=== PATIENT | female | born 1945 | race Two or more races ===

== ENCOUNTER 2024-05-23 18:38 | Emergency (ER) | payer OTHER ==
[~2024-05-23] VITALS: Ht 162.6 cm; Wt 65.0 kg
[2024-05-23 18:57] VITALS: BP 152/66; PULSE 71; RESP 20; O2SAT 98
== END 2024-05-23 23:30 | disposition left against medical advice (07) ==
LOC: ER 18:38 → EDBD 18:38 → ER 23:30
DX: F41.9 Anxiety disorder, unspecified (principal); Z53.21 Procedure and treatment not carried out due to patient leaving prior to being seen by health care provider

== ENCOUNTER → 2024-05-27 | Outpatient (CLI) | payer OTHER ==
[2024-05-27 11:35] LABS: Basophils # (auto) 0.1 10 ^3/uL (0-0.2); Basophils % (auto) 0.8 % (0.0-2.0); Eosinophils # (auto) 0 10 ^3/uL (0-0.8); Eosinophils % (auto) 0.5 % (0.0-7.0); Hematocrit 34.5 % (36.0-46.0); Hemoglobin 11.9 g/dL (12.2-16.2); Lymphocytes # (auto) 1.3 10 ^3/uL (0.4-5.4); Lymphocytes % (auto) 20.8 % (10.0-50.0); Mean Corpuscular Hemoglobin 29.1 pg (28.0-32.0); Mean Corpuscular Hgb Conc. 34.4 g/dL (32.0-36.0); Mean Corpuscular Volume 84.6 fL (80.0-100.0); Monocytes # (auto) 0.4 10 ^3/uL (0-1.3); Monocytes % (auto) 5.8 % (0.0-12.0); Neutrophils # (auto) 4.6 10 ^3/uL (1.6-8.6); Neutrophils % (auto) 72.1 % (37.0-80.0); Platelet Count (auto) 238 10^3/uL (140-450); Red Blood Cells 4.08 10^6/uL (4.0-5.20); Red Cell Distribution Width 16.5 % (11.8-14.3); White Blood Cell 6.3 10^3/uL (4.4-10.8)
[2024-05-27 11:51] LABS: % Iron Saturation 19.9 % (15-50); Alanine Aminotransferase 13 U/L (7-40); Albumin 4.6 g/dL (3.2-4.8); Alkaline Phosphatase 96 U/L (46-116); Anion Gap 8 (5-15); Aspartate Aminotransferase 15 U/L (13-40); BUN/Creatinine Ratio 16.1 (10.0-20.0); Bilirubin, Total 0.8 mg/dL (0.2-1.0); Blood Urea Nitrogen 18 mg/dL (9-23); Calcium 9.6 mg/dL (8.7-10.4); Carbon Dioxide 29 mmol/L (20-31); Chloride 97 mmol/L (98-107); Glucose 180 mg/dL (74-106); Potassium 3.4 mmol/L (3.5-5.1); Sodium 134 mmol/L (136-145); Total Protein 6.9 g/dL (5.7-8.2)
[2024-05-27 12:30] LABS: Ferritin 7.4 ng/mL (10-291); Folate (Folic Acid) 33.01 ng/mL (>5.38)
[2024-05-28 08:06] LABS: Immunoglobulin A 133 mg/dL (64-422); Immunoglobulin G, Serum 828 mg/dL (586-1602); Immunoglobulin M 49 mg/dL (26-217)
[2024-05-28 10:07] LABS: Albumin 3.8 g/dL (2.9-4.4); Alpha-1-Globulin 0.2 g/dL (0.0-0.4); Alpha-2-Globulin 0.7 g/dL (0.4-1.0); Gamma Globulin 0.8 g/dL (0.4-1.8); Globulin Total 2.6 g/dL (2.2-3.9); Kappa Lite Chain Free Serum 29.4 mg/L (3.3-19.4); Protein Total Serum 6.4 g/dL (6.0-8.5)
[2024-05-30 11:07] LABS: Antiparietal Cell Antibody 134.4 Units (0.0-20.0)
== END | disposition home or self-care (01) ==
LOC: LAB 09:44
PROVIDERS: ATTEND Student in an Organized Health Care Education/Training Program
DX: E53.9 Vitamin B deficiency, unspecified (principal)
CPT/HCPCS: 36415; 80053; 82607; 82728; 82746; 82784; 83521; 83540; 83550; 84155; 84165; 85025; 86334

== ENCOUNTER → 2024-09-30 | Outpatient (CLI) | payer OTHER ==
[2024-09-30 11:31] LABS: % Iron Saturation 8.1 % (15-50)
[2024-09-30 11:36] LABS: Ferritin 5.4 ng/mL (10-291); Folate (Folic Acid) 12.72 ng/mL (>5.38)
== END | disposition home or self-care (01) ==
LOC: LAB 09:31
PROVIDERS: ATTEND Student in an Organized Health Care Education/Training Program
DX: D51.9 Vitamin B12 deficiency anemia, unspecified (principal)
CPT/HCPCS: 82607; 82728; 82746; 83540; 83550

== ENCOUNTER → 2024-12-05 | Outpatient (CLI) | payer OTHER ==
[2024-12-05 09:57] LABS: Urine Bacteria None Seen /hpf (None Seen)
[2024-12-05 10:29] LABS: Urine Blood Negative /uL (Negative); Urine Clarity Clear (Clear); Urine Color Light-Yellow (Yellow); Urine Protein, UAD Negative (Negative); Urine Specific Gravity 1.012 (1.001-1.035); Urine Squamous Epithelial Cell FEW /hpf (<5); Urine Urobilinogen Normal (Negative); Urine WBC 7 /HPF (0-5); Urine pH 6.5 (5.0-9.0)
[2024-12-05 10:35] LABS: Creatinine, Urine 84.65 mg/dL (30.0-125.0)
[2024-12-05 10:37] LABS: Alanine Aminotransferase 16 U/L (7-40); Alanine Aminotransferase 17 U/L (7-40); Alkaline Phosphatase 96 U/L (46-116); Anion Gap 7 (5-15); BUN/Creatinine Ratio 13.1 (10.0-20.0); BUN/Creatinine Ratio 14.3 (10.0-20.0); Blood Urea Nitrogen 13 mg/dL (9-23); Blood Urea Nitrogen 14 mg/dL (9-23); Calcium 9.3 mg/dL (8.7-10.4); Carbon Dioxide 29 mmol/L (20-31); Total Protein 6.6 g/dL (5.7-8.2)
[2024-12-05 10:38] LABS: LDL Cholesterol 81 mg/dL (< 100); Total Protein 6.5 g/dL (5.7-8.2)
[2024-12-05 10:39] LABS: Albumin 4.4 g/dL (3.2-4.8); Aspartate Aminotransferase 18 U/L (13-40); Aspartate Aminotransferase 21 U/L (13-40); Basophils # (auto) 0.1 10 ^3/uL (0-0.2); Basophils % (auto) 0.9 % (0.0-2.0); Bilirubin, Total 0.6 mg/dL (0.2-1.0); Chloride 97 mmol/L (98-107); Cholesterol 150 mg/dL (< 200); Eosinophils # (auto) 0 10 ^3/uL (0-0.8); Eosinophils % (auto) 0.8 % (0.0-7.0); Glucose 215 mg/dL (74-106); Glucose 216 mg/dL (74-106); HDL Cholesterol 49 mg/dL (40-59); Hematocrit 38.1 % (36.0-46.0); Hemoglobin 12.7 g/dL (12.2-16.2); Lymphocytes % (auto) 14.7 % (10.0-50.0); Mean Corpuscular Hemoglobin 28.4 pg (28.0-32.0); Mean Corpuscular Hgb Conc. 33.5 g/dL (32.0-36.0); Mean Corpuscular Volume 84.9 fL (80.0-100.0); Monocytes # (auto) 0.4 10 ^3/uL (0-1.3); Monocytes % (auto) 6.6 % (0.0-12.0); Platelet Count (auto) 226 10^3/uL (140-450); Potassium 3.3 mmol/L (3.5-5.1); Potassium 3.4 mmol/L (3.5-5.1); Red Blood Cells 4.49 10^6/uL (4.0-5.20); Sodium 133 mmol/L (136-145); Triglycerides 169 mg/dL (< 150); White Blood Cell 6.5 10^3/uL (4.4-10.8)
[2024-12-05 10:40] LABS: Bilirubin, Total 0.6 mg/dL (0.2-1.0)
[2024-12-05 10:41] LABS: Basophils # (auto) 0 10 ^3/uL (0-0.2); Basophils % (auto) 0.7 % (0.0-2.0); Eosinophils # (auto) 0 10 ^3/uL (0-0.8); Eosinophils % (auto) 0.6 % (0.0-7.0); Hematocrit 37.7 % (36.0-46.0); Hemoglobin 12.5 g/dL (12.2-16.2); Lymphocytes # (auto) 0.9 10 ^3/uL (0.4-5.4); Lymphocytes % (auto) 14.3 % (10.0-50.0); Mean Corpuscular Hemoglobin 28.2 pg (28.0-32.0); Mean Corpuscular Hgb Conc. 33.3 g/dL (32.0-36.0); Mean Corpuscular Volume 84.6 fL (80.0-100.0); Monocytes # (auto) 0.4 10 ^3/uL (0-1.3); Monocytes % (auto) 6.6 % (0.0-12.0); Neutrophils # (auto) 5.1 10 ^3/uL (1.6-8.6); Neutrophils % (auto) 77.8 % (37.0-80.0); Nucleated Red Blood Cells % 0.1 %; Platelet Count (auto) 222 10^3/uL (140-450); Red Blood Cells 4.45 10^6/uL (4.0-5.20); Red Cell Distribution Width 17.8 % (11.8-14.3); White Blood Cell 6.5 10^3/uL (4.4-10.8)
[2024-12-05 11:29] LABS: Carcinoembryonic Antigen 3.96 ng/mL (<=5.0)
[2024-12-09 13:38] LABS: Immunoglobulin A 132 mg/dL
[2024-12-09 13:39] LABS: Endomysial IgA Antibody Negative
[2024-12-09 13:41] LABS: t-Transglutaminase (tTG) IgA <2 U/mL
== END | disposition home or self-care (01) ==
LOC: LAB 09:32
PROVIDERS: ATTEND Student in an Organized Health Care Education/Training Program
DX: I10 Essential (primary) hypertension (principal); E11.9 Type 2 diabetes mellitus without complications; D50.9 Iron deficiency anemia, unspecified
CPT/HCPCS: 36415; 80053; 80061; 81001; 82043; 82378; 82570; 82607; 82784; 83036; 83516; 84443; 85025; 86255

== ENCOUNTER 2025-01-22 16:54 | Inpatient (IN) | payer OTHER ==
[~2025-01-22] VITALS: Ht 167.6 cm; Wt 62.5 kg
--- NOTE | 2025-01-22 17:46 | ED.PDOC ---
History of Present Illness HPI Comments HPI: Vitals Temperature: Respiratory rate: SpO2: Heart rate: Blood pressure: Past Medical History: Past Surgical History: Social History: HPI: Poor Historian. 79-year-old female brought in by her daughter for evaluation of two falls one last week and another one today. Patient was getting up and felt very lightheaded and fell forward on her face. Patient transiently blacked out and returned spontaneously to her baseline. Similar episode happened also a week ago while she was standing she suddenly got dizzy fell to the ground. Patient denies any headache at this time or neck pain. Denies any acute numbness or tingling sensation. REVIEW OF SYSTEMS: CONSTITUTIONAL: Denies acute: fever, diaphoresis, chills, HEAD: Denies acute: headache, photophobia Eyes: Denies acute: Double vision, vision loss, eye pain, eye discharge. EARS: Denies acute: tinnitus, hearing loss, ear discharge, ear pain, THROAT: Denies acute: sore throat, swelling, difficulty swallowing , pain with swallowing, change in voice. NECK: Denies acute: neck pain, neck swelling, stiff neck. HEART: Denies acute : chest pain, palpitations, LUNGS: Denies acute: SOB, wheezing, cough, hemoptysis ABDOMEN: Denies acute: abdominal pain, Nausea, Vomiting, diarrhea, melena , hematemesis, hematochezia SKIN: Denies acute: rash, redness, lesions, itchiness. EXTREMITIES: Denies acute: calf pain, numbness, tingling, weakness, denies pain in extremity. Denies acute: Low back pain. Neuro: Denies acute: focal neurological deficit, motor or sensory focal neurological deficit, tremors, seizure like activity, confusion, change in mental status, loss of bowel or bladder function, cauda equina like symptoms. : Denies acute: dysuria, hematuria, flank pain, increase in urinary frequency. PSYCH: Denies acute: hallucination, suicidal ideation, homicidal ideation. FEMALE: Denies acute: abnormal vaginal bleeding, foul odor, unusual discharge. PHYSICAL EXAM: General: ----no----acute distress, awake and alert. Head: normocephalic, atraumatic. Noted left face contusion from the fall. Neck: supple, trachea is midline, no swelling. Cervical spine: Palpation of the posterior midline of the cervical spine reveals no focal swelling, erythema, focal tenderness to palpation. Patient has normal range of motion. Throat: Normal phonation. Eyes:, no erythema, no purulent discharge, no proptosis, no icterus. Heart: regular rate, regular rhythm, no significant murmur appreciated. Lungs: no apparent respiratory distress, Able to speak in full sentences. No wheezing, no rhonchi, no crackles. No stridors Clear to auscultation bilaterally. Abdomen: non tender to palpation, non distended, soft, no guarding, no rebound, + bowel sounds. Neuro: Awake, Alert, oriented to name, self, situation, follows commands GCS=15. Speech is normal. Skin: no petechia, no purpura, no cyanosis, non-pale, not jaundice. Lower extremities: --no - Pitting edema no deformity, no focal swelling, no calf TTP. Makes eye contact. moves all four extremities. Face: no apparent facial droop. PERRLA, EOM-I CN 2-12 are grossly intact, No nystagmus. No nuchal rigidity, Kernig's sign, Brudzinski's sign, no meningeal signs. ED COURSE: Chief Complaint: Dizziness Time Seen by MD: 17:32 Reviewed Notes: Nurses Notes, Allergies Allergies: Coded Allergies: NO KNOWN ALLERGIES (Unverified , 05/23/24) Home Meds Reported Medications Fluoxetine Hcl (Fluoxetine Hcl) 10 Mg Cap, 60 MG PO DAILY@BREAKFAST for 30 Days, MG 01/23/25 Hydrochlorothiazide (Hydrochlorothiazide) 12.5 Mg Cap, 12.5 MG PO DAILY for 30 Days, MG 01/23/25 Metformin Hydrochloride (Metformin Hcl) 850 Mg Tab, 850 MG PO for 30 Days, MG 01/23/25 Losartan Potassium (Losartan Potassium) 100 Mg Tab, 100 MG PO DAILY for 30 Days, MG 01/23/25 Information Source: Patient, Relative Was a procedure done? Was a procedure done?: No Differential Dx Considerations may include: Includes but not limited to thyroid disease, encephalopathy, electrolyte abnormality, sepsis, infection, intracranial pathology, drug adverse effects, arrhythmia, kidney insufficiency, ACS, CVA, malignancy, anemia X-Ray, Labs, Meds, VS Vital Signs Date Time Temp Pulse Resp B/P (MAP) Pulse Ox O2 Delivery O2 Flow Rate FiO2 01/22/25 19:17 98.1 76 15 146/75 (98) 98 98.1 01/22/25 19:17 76 15 98 Room Air 01/22/25 17:33 78 01/22/25 17:30 97.8 87 16 172/76 (108) 95 97.8 Lab Test 01/22/25 18:30 01/22/25 17:42 01/22/25 17:27 Range/Units Troponin I High Sensitivity 5 4 </=34 ng/L White Blood Count 9.4 4.4-10.8 10^3/uL Red Blood Count 4.96 4.0-5.20 10^6/uL Hemoglobin 15.0 12.2-16.2 g/dL Hematocrit 44.3 36.0-46.0 % Mean Corpuscular Volume 89.2 80.0-100.0 fL Mean Corpuscular Hemoglobin 30.3 28.0-32.0 pg Mean Corpuscular Hemoglobin Concent 33.9 32.0-36.0 g/dL Red Cell Distribution Width 18.5 H 11.8-14.3 % Platelet Count 216 140-450 10^3/uL Mean Platelet Volume 8.9 6.9-10.8 fL Neutrophils (%) (Auto) 91.2 H 37.0-80.0 % Lymphocytes (%) (Auto) 5.4 L 10.0-50.0 % Monocytes (%) (Auto) 3.0 0.0-12.0 % Eosinophils (%) (Auto) 0.0 0.0-7.0 % Basophils (%) (Auto) 0.4 0.0-2.0 % Neutrophils # (Auto) 8.6 1.6-8.6 10 ^3/uL Lymphocytes # (Auto) 0.5 0.4-5.4 10 ^3/uL Monocytes # (Auto) 0.3 0-1.3 10 ^3/uL Eosinophils # (Auto) 0 0-0.8 10 ^3/uL Basophils # (Auto) 0 0-0.2 10 ^3/uL Nucleated Red Blood Cells 0.0 % Sodium Level 139 136-145 mmol/L Potassium Level 3.5 3.5-5.1 mmol/L Chloride Level 105 98-107 mmol/L Carbon Dioxide Level 27 20-31 mmol/L Anion Gap 7 5-15 Blood Urea Nitrogen 11 9-23 mg/dL Creatinine 0.79 0.550-1.02 mg/dL Glomerular Filtration Rate Calc 77 >90 mL/min BUN/Creatinine Ratio 13.9 10.0-20.0 Serum Glucose 246 H 74-106 mg/dL Lactic Acid Level 1.2 0.4-2.0 mmol/L Calcium Level 9.7 8.7-10.4 mg/dL Magnesium Level 1.8 1.6-2.6 mg/dL Total Bilirubin 0.7 0.2-1.0 mg/dL Aspartate Amino Transferase (AST) 20 13-40 U/L Alanine Aminotransferase (ALT) 14 7-40 U/L Alkaline Phosphatase 113 46-116 U/L Creatine Kinase 52 34-145 U/L B-Type Natriuretic Peptide 159.13 0-100 pg/mL Total Protein 6.9 5.7-8.2 g/dL Albumin 4.6 3.2-4.8 g/dL Vitamin B12 Level 733 211-911 pg/mL Vitamin D 25-Hydroxy 15.1 L 30.0-100 ng/mL Folic Acid 19.21 >5.38 ng/mL Thyroid Stimulating Hormone (TSH) 1.71 0.55-4.78 uIU/mL POC Glucose 209 H 70-106 mg/dl [place] [id number] DIAGNOSTIC IMAGING Diagnostic Imaging Report : [id number] Signed PATIENT: HANNA REYNOSO V ACCT: [id number] UNIT: [id number] : 1945 LOC[facility]GE / SEX: 79 / F ADM STATUS: ADM IN SERVICE 1400 ORDERING PHYSICIAN: HANNA MOMIN RESIDENT PROCEDURE(s): HWOCT - HEAD WITHOUT CONTRAST REASON: rule out bleeding ORDER NUMBER(s): [id number], ACCESSION NUMBER(s): [id number] Procedure: CT HEAD WITHOUT CONTRAST Study Date and Requested Time: 01/23/2025 01:58 PM History: rule out bleeding Comparison: CT HEAD WITHOUT CONTRAST on DOS: 01/22/25 Dose: CTDI: 53.39 mGy DLP: 945.56 mGycm Technique: Multiplanar images obtained through the brain without intravenous contrast. Findings: Moderate diffuse brain atrophy. Mild chronic small vessel ischemic changes. B ilateral basal ganglia physiologic calcification. No hemorrhages, masses, mass effect, midline shift, herniation or cytotoxic e valentino following a large vascular territory. No intra-axial or extra-axial fluid collections. No evidence of hydrocephalus. The basal cisterns are patent. The pituitary gland, sella and parasellar regions are unremarkable. The cerebellar tonsils are in normal position. The cerebellum is unremarkable. There is bilateral lens replacement. Otherwise, orbits and globes are unremarkable. The paranasal sinuses and mastoids are clear. There are no worrisome calvarial lesions. There is left-sided periorbital soft tissue edema mainly of the infraorbital region. Impression: No evidence of acute intracranial abnormality. Left-sided periorbital Soft tissue edema, mainly of the infraorbital region. ATED BY: LUCIANA GONZÁLES DO DICTATED DATE/TIME: 01/23/251501 SIGNED BY: LUCIANA GONZÁLES DO SIGNED DATE/TIME: 01/23/25 150 CC: [place] [address] Ph: [phone] DIAGNOSTIC IMAGING Diagnostic Imaging Report : [id number] Signed PATIENT: HANNA REYNOSO V ACCT: [id number] UNIT: [id number] : 1945 LOC: ER ROOM / BED: / AGE / SEX: 79 / F ADM STATUS: REG ER SERVICE 49 ORDERING PHYSICIAN: BECCA GTZ DO PROCEDURE(s): LTBFB - L TIB FIB XRAY REASON: fall ORDER NUMBER(s): [id number], ACCESSION NUMBER(s): [id number] EXAM: XY L TIB FIB XRAY INDICATION: fall TECHNIQUE: 2 views of the left tibia/fibula COMPARISON: None FINDINGS/IMPRESSION: Subcutaneous tissue edema. No knee joint effusion. Diffusely decreased bone mineralization. ATED BY: MARY KNOWLES MD DICTATED DATE/TIME: 01/22/251825 SIGNED BY: MARY KNOWLES MD SIGNED DATE/TIME: 01/22/251825 CC: [place] [address] Ph: [phone] DIAGNOSTIC IMAGING Diagnostic Imaging Report : [id number] Signed PATIENT: HANNA REYNOSO V ACCT: [id number] UNIT: [id number] : 1945 LOC: ER ROOM / BED: / AGE / SEX: 79 / F ADM STATUS: REG ER SERVICE 32 ORDERING PHYSICIAN: BECCA GTZ DO PROCEDURE(s): HWOCT - HEAD WITHOUT CONTRAST REASON: fall, dizzy ORDER NUMBER(s): [id number], ACCESSION NUMBER(s): [id number] EXAM: CT HEAD WITHOUT CONTRAST INDICATION: fall, dizzy TECHNIQUE: CT of the head without intravenous contrast. Radiation Dose Information: CT Dose: CTDI volume is 50.22 mGy. Dose-length product is 805.19 mGy*cm The dose indicators for CT are the volume Computed Tomography (CT) Dose Index (CTDIvol) and the Dose Length Product (DLP), and are measured in units of mGy and mGy-cm, respectively. These indicators are not patient dose, but values generated from the CT scanner acquisition factors. The report includes radiation exposure data for exposures received during this examination. COMPARISON: None FINDINGS: There is no evidence of acute intracranial hemorrhage, extra-axial collection, mass effect, midline shift, herniation or hydrocephalus. The ventricles, sulci and cisterns are age appropriate. The arora-white differentiation is intact. Patchy periventricular and subcortical white matter hypoattenuation is nonspecific but may be related to small vessel ischemic disease. The visualized paranasal sinuses and mastoid air cells are clear. The surrounding soft tissues and osseous structures are unremarkable. IMPRESSION: 1. No acute intracranial abnormality. ATED BY: ADONIS FERRER Jr., DO DICTATED DATE/TIME: 01/22/251826 SIGNED BY: ADONIS FERRER Jr., DO SIGNED DATE/TIME: 01/22/251826 CC: [place] [address] Ph: [phone] DIAGNOSTIC IMAGING Diagnostic Imaging Report : [id number] Signed PATIENT: HANNA REYNOSO V ACCT: [id number] UNIT: [id number] : 1945 LOC: ER ROOM / BED: / AGE / SEX: 79 / F ADM STATUS: REG ER SERVICE 32 ORDERING PHYSICIAN: BECCA GTZ DO PROCEDURE(s): CXRP - CHEST PORTABLE REASON: fall, dizzy ORDER NUMBER(s): [id number], ACCESSION NUMBER(s): [id number] CHEST RADIOGRAPH Indication: fall, dizzy Technique: Single frontal view of the chest was obtained Comparison: None FINDINGS: Lines and Tubes: None Lungs: No focal consolidation. Pleura: No effusion. No pneumothorax. Cardiomediastinal contours: Unremarkable Bones: No acute osseous abnormality. IMPRESSION: 1. No acute cardiopulmonary disease. ATED BY: ADONIS FERRER Jr., DO DICTATED DATE/TIME: 01/22/251823 SIGNED BY: ADONIS FERRER Jr., DO SIGNED DATE/TIME: 01/22/251823 CC: [place] [address] Ph: [phone] DIAGNOSTIC IMAGING Diagnostic Imaging Report : [id number] Signed PATIENT: HANNA REYNOSO V ACCT: [id number] UNIT: [id number] : 1945 LOC: ER ROOM / BED: / AGE / SEX: 79 / F ADM STATUS: REG ER SERVICE 32 ORDERING PHYSICIAN: BECCA GTZ DO PROCEDURE(s): CS2 - CERVICAL WITHOUT CONTRAST REASON: fall, dizzy ORDER NUMBER(s): [id number], ACCESSION NUMBER(s): [id number] EXAM: CT CERVICAL WITHOUT CONTRAST INDICATION: fall, dizzy EXAM DATE: 01/22/2025 05:45 PM COMPARISON: None TECHNIQUE: Multiple axial CT images of the cervical spine were obtained using bone algorithm. Axial and coronal reformatting was done. Bone and soft tissue windows were reviewed. Radiation Dose Information: CT Dose: CTDI volume is 16.79 mGy. Dose-length product is 423.44 mGy*cm FINDINGS: The cervical alignment is intact. No acute cervical spine fracture is identified. The vertebral body heights are intact. No suspicious osseous lesions are identified. Bony spondylosis from C3 through C7 with degenerative disc changes worse at C5-6 7. Reversal of the normal cervical lordotic curve which may be secondary to patient positioning or muscle spasm. There is no prevertebral soft tissue swelling. IMPRESSION: 1. No evidence of acute cervical spine fracture or traumatic malalignment. 2. Bony spondylosis degenerative disc changes. 3. Reversal of the normal cervical lordotic curve. All CT scans at this medical facility are performed using dose modulation techniques as appropriate to a performed exam including the following: Automated exposure control was utilized; adjustment of the MA and/or KV according to patient size; and use of iterative reconstruction technique. ATED BY: ADONIS FERRER Jr., DO DICTATED DATE/TIME: 01/22/251838 SIGNED BY: ADONIS FERRER Jr., SIGNED DATE/TIME: 01/22/251838 CC: Time of 1ST Reevaluation: 00:00 Reevaluation 1ST: Improved Patient Education/Counseling: Diagnosis, Treatment Family Education/Counseling: Diagnosis, Treatment Comments Patient presented with the above HPI.---Frequent falls secondary to dizziness /closed head injury---workup was initiated. patient was found with the above mentioned diagnosis. the following medications were ordered: please refer to order lists of meds and tests obtained by myself Dr. Gtz. Patient ED course and VS have been stabilized. Patient has been reassessed in the ED and remained in a stable condition. Pertinent incidental findings were discussed with the patient and/or family. Patient/family voices understanding and is agreeable with plan. Patient has been observed in the ED adequate length of time to insure improvement/stability. Escalation of care considered: Consideration of escalation to observation or admission Patient was ADMITTED to the medicine team for further evaluation and treatment of their presentation. All the reports of any imaging studies that were ordered by myself were reviewed by myself. Departure 1 Departure Time of Disposition: 19:27 Impression: Primary Impression: Frequent falls Additional Impressions: Closed head injury Facial contusion Syncope and collapse Disposition: ADMITTED INPATIENT Admit to: Tele Condition: Guarded Discharged With: Self I personally scribed for BECCA GTZ DO ([email or web address]) on 01/22/25 at 17:46. Electronically submitted by Roseanna Cramer [email or web address]). BECCA GTZ DO January 22, 2025 17:46
[2025-01-22 17:57] LABS: Basophils # (auto) 0 10 ^3/uL (0-0.2); Basophils % (auto) 0.4 % (0.0-2.0); Eosinophils # (auto) 0 10 ^3/uL (0-0.8); Hematocrit 44.3 % (36.0-46.0); Lymphocytes # (auto) 0.5 10 ^3/uL (0.4-5.4); Lymphocytes % (auto) 5.4 % (10.0-50.0); Mean Corpuscular Hemoglobin 30.3 pg (28.0-32.0); Mean Corpuscular Hgb Conc. 33.9 g/dL (32.0-36.0); Mean Corpuscular Volume 89.2 fL (80.0-100.0); Monocytes # (auto) 0.3 10 ^3/uL (0-1.3); Neutrophils # (auto) 8.6 10 ^3/uL (1.6-8.6); Neutrophils % (auto) 91.2 % (37.0-80.0); Platelet Count (auto) 216 10^3/uL (140-450); Red Blood Cells 4.96 10^6/uL (4.0-5.20); Red Cell Distribution Width 18.5 % (11.8-14.3); White Blood Cell 9.4 10^3/uL (4.4-10.8)
[2025-01-22 18:10] LABS: Alanine Aminotransferase 14 U/L (7-40); Albumin 4.6 g/dL (3.2-4.8); Alkaline Phosphatase 113 U/L (46-116); Anion Gap 7 (5-15); Aspartate Aminotransferase 20 U/L (13-40); BUN/Creatinine Ratio 13.9 (10.0-20.0); Blood Urea Nitrogen 11 mg/dL (9-23); Calcium 9.7 mg/dL (8.7-10.4); Carbon Dioxide 27 mmol/L (20-31); Chloride 105 mmol/L (98-107); Creatine Kinase IFCC 52 U/L (34-145); Magnesium 1.8 mg/dL (1.6-2.6); Potassium 3.5 mmol/L (3.5-5.1); Sodium 139 mmol/L (136-145); Total Protein 6.9 g/dL (5.7-8.2)
[2025-01-22 18:11] LABS: Bilirubin, Total 0.7 mg/dL (0.2-1.0); Glucose 246 mg/dL (74-106)
--- NOTE | 2025-01-22 18:27 | DVH ---
CHEST RADIOGRAPH Indication: fall, dizzy Technique: Single frontal view of the chest was obtained Comparison: None FINDINGS: Lines and Tubes: None Lungs: No focal consolidation. Pleura: No effusion. No pneumothorax. Cardiomediastinal contours: Unremarkable Bones: No acute osseous abnormality. IMPRESSION: 1. No acute cardiopulmonary disease.
--- NOTE | 2025-01-22 18:28 | DVH ---
EXAM: XY L TIB FIB XRAY INDICATION: fall TECHNIQUE: 2 views of the left tibia/fibula COMPARISON: None FINDINGS/IMPRESSION: Subcutaneous tissue edema. No knee joint effusion. Diffusely decreased bone mineralization.
--- NOTE | 2025-01-22 18:30 | DVH ---
EXAM: CT HEAD WITHOUT CONTRAST INDICATION: fall, dizzy TECHNIQUE: CT of the head without intravenous contrast. Radiation Dose Information: CT Dose: CTDI volume is 50.22 mGy. Dose-length product is 805.19 mGy*cm The dose indicators for CT are the volume Computed Tomography (CT) Dose Index (CTDIvol) and the Dose Length Product (DLP), and are measured in units of mGy and mGy-cm, respectively. These indicators are not patient dose, but values generated from the CT scanner acquisition factors. The report includes radiation exposure data for exposures received during this examination. COMPARISON: None FINDINGS: There is no evidence of acute intracranial hemorrhage, extra-axial collection, mass effect, midline s hift, herniation or hydrocephalus. The ventricles, sulci and cisterns are age appropriate. The arora-white differentiation is intact. Patchy periventricular and subcortical white matter hypoattenuation is nonspecific but may be related to small vessel ischemic disease. The visualized paranasal sinuses and mastoid air cells are clear. The surrounding soft tissues and osseous structures are unremarkable. IMPRESSION: 1. No acute intracranial abnormality.
--- NOTE | 2025-01-22 18:41 | DVH ---
EXAM: CT CERVICAL WITHOUT CONTRAST INDICATION: fall, dizzy EXAM DATE: 01/22/2025 05:45 PM COMPARISON: None TECHNIQUE: Multiple axial CT images of the cervical spine were obtained using bone algorithm. Axial a nd coronal reformatting was done. Bone and soft tissue windows were reviewed. Radiation Dose Information: CT Dose: CTDI volume is 16.79 mGy. Dose-length product is 423.44 mGy*cm FINDINGS: The cervical alignment is intact. No acute cervical spine fracture is identified. The vertebral body heights are intact. No suspicious osseous lesions are identified. Bony spondylosis from C3 through C7 with degenerative disc changes worse at C5-6 7. Reversal of the normal cervical lordotic curve which may be secondary to patient positioning or muscl e spasm. There is no prevertebral soft tissue swelling. IMPRESSION: 1. No evidence of acute cervical spine fracture or traumatic malalignment. 2. Bony spondylosis degenerative disc changes. 3. Reversal of the normal cervical lordotic curve. All CT scans at this medical facility are performed using dose modulation techniques as appropriate t o a performed exam including the following: Automated exposure control was utilized; adjustment of th e MA and/or KV according to patient size; and use of iterative reconstruction technique.
[2025-01-22] MEDS ORDERED: ACETAMINOPHEN 325 MG TAB PO PRN (21:30)
[2025-01-22] MEDS ORDERED: HYDROcodone-ACET 5/325MG TAB PO PRN (21:30)
[2025-01-22] MEDS ORDERED: DEXTROSE (50%) 50ML SYRG IV PRN (21:30)
--- NOTE | 2025-01-22 21:57 | DVHHP2 ---
History of Present Illness History of Present Illness 79-year-old female with history of diabetes mellitus type 2, hypertension, heart failure with preserved ejection fraction, hyperlipidemia, anxiety, and osteoporosis, brought in by her daughter after sustaining two fallsone last week and another earlier today. The most recent event occurred when the patient got up and experienced lightheadedness, falling forward onto her face. She returned spontaneously to her baseline. The patient describes a similar episode one week ago with dizziness while standing, leading to a ground-level fall. She denies current headache, neck pain, visual changes, chest pain, palpitations, or focal neurologic symptoms. She has a large hematoma on the left side of the face. Poor historian; history corroborated by daughter. She has a known history of falls and prior syncopal episodes. MRI in 2023 showed evidence of small vessel ischemic disease and possible cardioembolic/lacunar infarcts. Carotid duplex, head CT, and cervical spine CT done in ED today were unremarkable apart from chronic changes. Past Medical History: Diabetes mellitus type 2 Hypertension Hyperlipidemia Osteoporosis Heart failure with preserved EF (HFpEF) Anxiety History of falls and syncope Prior MRI in 2023 showed possible cardioembolic/lacunar infarcts Review of Systems Constitutional: No: Fever, Chills, Sweats, Weakness, Malaise, Other Eyes: No: Pain, Vision change, Conjunctivae inflammation, Eyelid inflammation, Other, Redness ENT: No: Ear pain, Ear discharge, Nose pain, Nose discharge, Nose congestion, Mouth pain, Mouth swelling, Throat pain, Throat swelling, Other Respiratory: No: Cough, Dry, Shortness of breath, SOB with excertion, Wheezing, Hemoptysis, Pleuritic Pain, Sputum, Wheezing, Other Cardiovascular: No: Chest Pain, Palpitations, Orthopnea, Paroxysmal Noc. Dyspnea, Edema, Lt Headedness, Other Gastrointestinal: No: Nausea, Vomiting, Abdominal Pain, Diarrhea, Constipation, Melena, Hematochezia, Other Genitourinary: No Dysuria, No Frequency, No Incontinence, No Hematuria, No Retention, No Other Musculoskeletal: No: other, neck pain, shoulder pain, arm pain, back pain, hand pain, leg pain, foot pain Skin: No: Rash, Lesions, Jaundice, Bruising, Other Neurological: Weakness; No: Numbness, Incoordination, Change in speech, Confusion, Seizures, Other Allergies: Coded Allergies: NO KNOWN ALLERGIES (Unverified , 05/23/24) Medications Current Medications Medications Dose Ordered Sig/Siomara Route Start Time Stop Time Status Last Admin Dose Admin Losartan Potassium 100 mg DAILY PO 01/22/25 21:30 Acetaminophen 650 mg Q4HP PRN PO 01/22/25 21:30 Acetaminophen/ Hydrocodone Bitart 1 tab Q6HPRN PRN PO 01/22/25 21:30 Diagnostic Test (Pha) 1 strip ACHS 01/22/25 22:00 Insulin Human Regular ACHS SC 01/22/25 22:00 Dextrose 50 ml UD PRN IV 01/22/25 21:30 Exam Vital Signs Vital Signs Date Time Temp Pulse Resp B/P (MAP) Pulse Ox O2 Delivery O2 Flow Rate FiO2 01/22/25 21:49 Room Air* 0 21 01/22/25 21:14 98.4 74 16 155/72 (99) 97 98.4 Exam She has a large hematoma on the left side of the face General Appearance: Alert HEENT: Atraumatic, PERRLA Respiratory: Clear to auscultation Cardiovascular: Regular rate, Normal S1 Abdominal: Normal bowel sounds Extremities: No clubbing, No cyanosis Skin: No rashes, No breakdown Neuro: Normal gait, Normal speech Psych/Mental Status: Mental status NL, Mood NL Labs/Xrays Labs Test 01/22/25 18:30 01/22/25 17:42 01/22/25 17:27 Range/Units Troponin I High Sensitivity 5 </=34 ng/L White Blood Count 9.4 4.4-10.8 10^3/uL Red Blood Count 4.96 4.0-5.20 10^6/uL Hemoglobin 15.0 12.2-16.2 g/dL Hematocrit 44.3 36.0-46.0 % Mean Corpuscular Volume 89.2 80.0-100.0 fL Mean Corpuscular Hemoglobin 30.3 28.0-32.0 pg Mean Corpuscular Hemoglobin Concent 33.9 32.0-36.0 g/dL Red Cell Distribution Width 18.5 H 11.8-14.3 % Platelet Count 216 140-450 10^3/uL Mean Platelet Volume 8.9 6.9-10.8 fL Neutrophils (%) (Auto) 91.2 H 37.0-80.0 % Lymphocytes (%) (Auto) 5.4 L 10.0-50.0 % Monocytes (%) (Auto) 3.0 0.0-12.0 % Eosinophils (%) (Auto) 0.0 0.0-7.0 % Basophils (%) (Auto) 0.4 0.0-2.0 % Neutrophils # (Auto) 8.6 1.6-8.6 10 ^3/uL Lymphocytes # (Auto) 0.5 0.4-5.4 10 ^3/uL Monocytes # (Auto) 0.3 0-1.3 10 ^3/uL Eosinophils # (Auto) 0 0-0.8 10 ^3/uL Basophils # (Auto) 0 0-0.2 10 ^3/uL Nucleated Red Blood Cells 0.0 % Sodium Level 139 136-145 mmol/L Potassium Level 3.5 3.5-5.1 mmol/L Chloride Level 105 98-107 mmol/L Carbon Dioxide Level 27 20-31 mmol/L Anion Gap 7 5-15 Blood Urea Nitrogen 11 9-23 mg/dL Creatinine 0.79 0.550-1.02 mg/dL Glomerular Filtration Rate Calc 77 >90 mL/min BUN/Creatinine Ratio 13.9 10.0-20.0 Serum Glucose 246 H 74-106 mg/dL Lactic Acid Level 1.2 0.4-2.0 mmol/L Calcium Level 9.7 8.7-10.4 mg/dL Magnesium Level 1.8 1.6-2.6 mg/dL Total Bilirubin 0.7 0.2-1.0 mg/dL Aspartate Amino Transferase (AST) 20 13-40 U/L Alanine Aminotransferase (ALT) 14 7-40 U/L Alkaline Phosphatase 113 46-116 U/L Creatine Kinase 52 34-145 U/L B-Type Natriuretic Peptide 159.13 0-100 pg/mL Total Protein 6.9 5.7-8.2 g/dL Albumin 4.6 3.2-4.8 g/dL POC Glucose 209 H 70-106 mg/dl Assessment/Plan Assessment/Plan #sp mechanical fall #Facial and head concussion #Facial hematoma #Presyncope #Rule out stroke #H/o lacunar infarcts (embolic) #Diabetes mellitus type 2 #Hypertensive heart disease with diastolic disfunction #Vitamin D deficiency EKG no abnormalities Head and cervical ct scan, chest and lower extremity x ray and carotid duplex normal Previous MRI: cardioembolic strokes? Admit Telemetry Hold on aspirin and DVT prophylaxis due to trauma Mild ISS Losartan 100 mg Hold on in other BP meds due to presyncope Tylenol and Nelson for pain Case discussed with Dr Buckner Full code Plan discussed with: Patient, Other (rn) My Orders Orders - HANNA MOMIN Procedure Category Date Status Time Admit ADMIT 01/22/25 Transmitted 21:11 Code Status CODE 01/22/25 Transmitted 21:11 Vital Signs ELLIOTT 01/22/25 In Process 21:11 Review Orders With [facility] 01/22/25 In Process Adm. 21:11 Notify Md Of Changes ELLIOTT 01/22/25 In Process From Base 21:11 Advance Directive ELLIOTT 01/22/25 In Process 21:11 Patient Condition ORDERS 01/22/25 Transmitted 21:11 Allergies ELLIOTT 01/22/25 In Process 21:11 Echo 2d Mode Cardiac US 01/22/25 Logged DOP 21:16 Losartan Tablet PHA 01/22/25 In Process (Cozaar Tablet) 21:30 Acetaminophen Tablet PHA 01/22/25 In Process (Tylenol Tablet) 21:30 Hydrocodone-Acet PHA 01/22/25 In Process 5/325mg Tab (Nelson 21:30 Consistent DIET 01/23/25 Transmitted Carb(Ccho)Diabetes Breakfast Glucose Blood PHA 01/22/25 In Process (Accu-Chek Comfort 22:00 Insulin R (Human) PHA 01/22/25 In Process (Insulin R) 22:00 Dextrose 50% Syringe PHA 01/22/25 In Process 21:30 Carotid Duplx W Color US 01/22/25 Taken DOP 21:22 Folate (Folic Acid) LAB 01/22/25 In Process 21:42 Thyroid Stimulating LAB 01/22/25 In Process Hormone 21:42 Ammonia LAB 01/22/25 Logged 21:42 Vitamin B12 LAB 01/22/25 In Process 21:42 Vitamin D, 25-Hydroxy LAB 01/22/25 In Process 21:42 Date of Service: January 22, 2025 Billing Provider: DENISE BUCKNER MD Common Visit Codes: [id number] INP/OBS CARE (HIGH) Secondary Visit Codes: [id number] CARE PLAN 30 MINUTES HANNA MOMIN RESIDENT January 22, 2025 21:57
[2025-01-22] MEDS: ACCU-CHEK COMFORT CURVE STRIP VI SCH (22:00)
--- NOTE | 2025-01-22 22:18 | DVH ---
Carotid Duplex Clinical History: near syncope Comparison: None Technique: Duplex Doppler evaluation of the extracranial carotid and vertebral arteries including color Doppler and spectral/pulsed waveform analysis was performed. Findings: RIGHT SIDE: No significant atherosclerotic plaque noted. The peak systolic velocities are 51 cm/s in the CCA, 66 cm/s in the ICA. The ICA/CCA ratio is 1.3. The external carotid artery is patent with peak systolic velocity of 69 cm/s proximally. The subclavian artery is patent. There is appropriate antegrade flow in the right vertebral artery. LEFT SIDE: No significant atherosclerotic plaque noted. The peak systolic velocities are 54 cm/s in the CCA, 78 cm/s in the ICA. The ICA/CCA ratio is 1.4. The external carotid artery is patent with peak systolic velocity of 64 cm/s proximally. The subclavian artery is patent. There is appropriate antegrade flow in the left vertebral artery. IMPRESSION: No evidence of hemodynamically significant stenosis. Reference: Radiology 2003; 229:340-346 Normal ICA PSV is <125 cm/sec and no plaque or intimal thickening is visible sonographically addition al criteria include ICA/CCA PSV ratio <2.0 and ICA EDV <40 cm/sec <50% ICA stenosis ICA PSV is <125 cm/sec and plaque or intimal thickening is visible sonographically additional criteria include ICA/CCA PSV ratio <2.0 and ICA EDV <40 cm/sec 50-69% ICA stenosis ICA PSV is 125-230 cm/sec and plaque is visible sonographically additional criter ia include ICA/CCA PSV ratio of 2.0-4.0 and ICA EDV of 40-100 cm/sec 70% ICA stenosis but less than near occlusion ICA PSV is >230 cm/sec and visible plaque and luminal narrowing are seen at arora-scale and color Doppler ultrasound (the higher the Doppler parameters lie above the threshold of 230 cm/sec, the greater the likelihood of severe disease) additional criteria include ICA/CCA PSV ratio >4 and ICA EDV >100 cm/sec
[2025-01-22 22:22] LABS: Folate (Folic Acid) 19.21 ng/mL (>5.38)
[2025-01-22] MEDS: LOSARTAN POTASSIUM 50 MG TAB PO SCH (23:09)
[2025-01-22] MEDS: InsuLIN REG 1unit/0.01ml Soln (100units/ml) SC SCH (23:09)
[2025-01-23] VITALS (9 sets, daily range): BP systolic 135–161; BP diastolic 65–89; PULSE 60–78; RESP 15–18; TEMP 97.6–99.2; O2SAT 70–99
[2025-01-23] MEDS ORDERED: METF-371 PO (04:37)
[2025-01-23] MEDS ORDERED: HYDR12.59 PO (04:37)
[2025-01-23] MEDS ORDERED: LOSA-535 PO (04:37)
[2025-01-23] MEDS ORDERED: FLUO-126 PO (04:37)
[2025-01-23 07:49] LABS: Basophils # (auto) 0 10 ^3/uL (0-0.2); Basophils % (auto) 0.4 % (0.0-2.0); Eosinophils # (auto) 0 10 ^3/uL (0-0.8); Eosinophils % (auto) 0.1 % (0.0-7.0); Hematocrit 40.8 % (36.0-46.0); Hemoglobin 13.9 g/dL (12.2-16.2); Lymphocytes # (auto) 0.7 10 ^3/uL (0.4-5.4); Lymphocytes % (auto) 8.4 % (10.0-50.0); Mean Corpuscular Hemoglobin 30.3 pg (28.0-32.0); Mean Corpuscular Hgb Conc. 34.1 g/dL (32.0-36.0); Monocytes # (auto) 0.5 10 ^3/uL (0-1.3); Neutrophils # (auto) 7.5 10 ^3/uL (1.6-8.6); Neutrophils % (auto) 85.1 % (37.0-80.0); Nucleated Red Blood Cells % 0.1 %; Platelet Count (auto) 210 10^3/uL (140-450); Red Blood Cells 4.59 10^6/uL (4.0-5.20); Red Cell Distribution Width 18.9 % (11.8-14.3); White Blood Cell 8.8 10^3/uL (4.4-10.8)
[2025-01-23 08:08] LABS: Alanine Aminotransferase 13 U/L (7-40); Albumin 4.1 g/dL (3.2-4.8); Alkaline Phosphatase 96 U/L (46-116); Anion Gap 9 (5-15); Aspartate Aminotransferase 16 U/L (13-40); BUN/Creatinine Ratio 15.7 (10.0-20.0); Blood Urea Nitrogen 11 mg/dL (9-23); Calcium 9.5 mg/dL (8.7-10.4); Carbon Dioxide 27 mmol/L (20-31); Chloride 106 mmol/L (98-107); Sodium 142 mmol/L (136-145); Total Protein 6.1 g/dL (5.7-8.2)
[2025-01-23 08:09] LABS: Bilirubin, Total 0.6 mg/dL (0.2-1.0)
[2025-01-23 08:13] LABS: Glucose 138 mg/dL (74-106); Potassium 3.1 mmol/L (3.5-5.1)
[2025-01-23] MEDS: ERGOCALCIFEROL 50,000 UNIT(1.25MG) CAP PO SCH (09:17)
--- NOTE | 2025-01-23 12:47 | DVHPN2 ---
Subjective Seen and examined at bedside. No Syncope or LOC. Patient had a mechanical fall. Will repeat CT HEAD prior to DC Home Changes from previous H/P or p: No Changes Eyes: No Pain, No Vision change, No Conjunctivae inflammation, No Eyelid inflammation, No Other, No Redness ENT: No Ear pain, No Ear discharge, No Nose pain, No Nose discharge, No Nose congestion, No Mouth pain, No Mouth swelling, No Throat pain, No Throat swelling, No Other Cardiovascular: No Chest Pain, No Palpitations, No Orthopnea, No Paroxysmal Noc. Dyspnea, No Edema, No Lt Headedness, No Other Respiratory: No Cough, No Dry, No Shortness of breath, No SOB with excertion, No Wheezing, No Hemoptysis, No Pleuritic Pain, No Sputum, No Other Gastrointestinal: No Nausea, No Vomiting, No Abdominal Pain, No Diarrhea, No Constipation, No Melena, No Hematochezia, No Other Genitourinary: No Dysuria, No Frequency, No Incontinence, No Hematuria, No Retention, No Other Musculoskeletal: No other, No neck pain, No shoulder pain, No arm pain, No back pain, No hand pain, No leg pain, No foot pain Skin: No Rash, No Lesions, No Jaundice, No Bruising, No Other Objective Vitals Vital Signs Date Time Temp Pulse Resp B/P (MAP) Pulse Ox O2 Delivery O2 Flow Rate FiO2 01/23/25 09:18 156/77 01/23/25 09:00 98.1 71 16 96 98.1 01/23/25 08:00 Room Air* 0 21 Intake/Output Intake and Output 01/23/25 06:59 Intake Total 50 ml Output Total 0 ml Balance 50 ml Intake Oral 50 ml Output Urine Total 0 ml General Appearance: Alert, Oriented X3, Cooperative HEENT: Other (Left Eye Bruising) Lungs: Clear to auscultation Cardiovascular: Regular rate, Normal S1, Normal S2 Abdomen: Normal bowel sounds Psych/Mental Status: Mental status NL Medications Current Medications Medications Dose Ordered Sig/Siomara Route Start Time Stop Time Status Last Admin Dose Admin Losartan Potassium 100 mg DAILY PO 01/22/25 21:30 01/23/25 09:18 100 MG Acetaminophen 650 mg Q4HP PRN PO 01/22/25 21:30 Acetaminophen/ Hydrocodone Bitart 1 tab Q6HPRN PRN PO 01/22/25 21:30 Diagnostic Test (Pha) 1 strip ACHS 01/22/25 22:00 01/23/25 11:03 1 STRIP Insulin Human Regular ACHS SC 01/22/25 22:00 01/23/25 11:06 4 UNITS Dextrose 50 ml UD PRN IV 01/22/25 21:30 Ergocalciferol 50,000 unit Q7D PO 01/23/25 10:00 01/23/25 09:17 50,000 UNIT Laboratory Results Laboratory Tests 01/23/25 07:11 Chemistry Test 01/22/25 17:42 01/23/25 07:11 Albumin 4.6 g/dL (3.2-4.8) 4.1 g/dL (3.2-4.8) Calcium Level 9.7 mg/dL (8.7-10.4) 9.5 mg/dL (8.7-10.4) Magnesium Level 1.8 mg/dL (1.6-2.6) Total Protein 6.9 g/dL (5.7-8.2) 6.1 g/dL (5.7-8.2) Cardiac Markers Test 01/22/25 17:42 B-Type Natriuretic Peptide 159.13 pg/mL (0-100) LFT Test 01/22/25 17:42 01/23/25 07:11 Alanine Aminotransferase (ALT) 14 U/L (7-40) 13 U/L (7-40) Alkaline Phosphatase 113 U/L (46-116) 96 U/L (46-116) Aspartate Amino Transferase (AST) 20 U/L (13-40) 16 U/L (13-40) Total Bilirubin 0.7 mg/dL (0.2-1.0) 0.6 mg/dL (0.2-1.0) HgA1c, TSH Test 01/22/25 17:42 01/23/25 07:11 Thyroid Stimulating Hormone (TSH) 1.71 uIU/mL (0.55-4.78) Hemoglobin A1c 8.1 % A1C (<5.7) H Assessment/Plan Assessment/Plan #sp mechanical fall #Facial and head concussion #Facial hematoma #Presyncope #Rule out stroke #H/o lacunar infarcts (embolic) #Diabetes mellitus type 2 A1c 8.1 #Hypertensive heart disease with diastolic disfunction #Vitamin D deficiency Plan discussed with: Patient My Orders Orders - DENISE STUART MD Procedure Category Date Status Time Orthostatic Vital ORDERS 01/23/25 Transmitted Signs 11:23 Pt Request For Service PT 01/23/25 Logged 11:23 Basic Metabolic Panel LAB 01/23/25 Logged 14:00 * Rn Testing CONS 01/23/25 Transmitted Consult Straight Cath Patient ORDERS 01/23/25 Transmitted 12:44 Communication Order ORDERS 01/23/25 Transmitted 12:44 Date of Service: January 23, 2025 Billing Provider: DENISE STUART MD Common Visit Codes: [id number] INP/OBS CARE(HIGH) DENISE STUART MD January 23, 2025 12:47
[2025-01-23] MEDS: POTASSIUM CHL 20 Meq TABLET PO ONE (14:41)
[2025-01-23] MEDS: POTASSIUM CHL 10 Meq TABLET PO ONE (14:42)
--- NOTE | 2025-01-23 15:04 | DVH ---
Procedure: CT HEAD WITHOUT CONTRAST Study Date and Requested Time: 01/23/2025 01:58 PM History: rule out bleeding Comparison: CT HEAD WITHOUT CONTRAST on DOS: 01/22/25 Dose: CTDI: 53.39 mGy DLP: 945.56 mGycm Technique: Multiplanar images obtained through the brain without intravenous contrast. Findings: Moderate diffuse brain atrophy. Mild chronic small vessel ischemic changes. Bilateral basal ganglia p hysiologic calcification. No hemorrhages, masses, mass effect, midline shift, herniation or cytotoxic edema following a large v ascular territory. No intra-axial or extra-axial fluid collections. No evidence of hydrocephalus. The basal cisterns are patent. The pituitary gland, sella and parasellar regions are unremarkable. The cerebellar tonsils are in nor mal position. The cerebellum is unremarkable. There is bilateral lens replacement. Otherwise, orbits and globes are unremarkable. The paranasal si nuses and mastoids are clear. There are no worrisome calvarial lesions. There is left-sided periorbit al soft tissue edema mainly of the infraorbital region. Impression: No evidence of acute intracranial abnormality. Left-sided periorbital Soft tissue edema, mainly of the infraorbital region.
[2025-01-23 15:40] LABS: Urine Bacteria FEW /hpf (None Seen); Urine Blood Negative /uL (Negative); Urine Clarity Clear (Clear); Urine Color Yellow (Yellow); Urine Protein, UAD Negative (Negative); Urine Specific Gravity 1.015 (1.001-1.035); Urine Squamous Epithelial Cell FEW /hpf (<5); Urine Urobilinogen Normal (Negative); Urine WBC 13 /HPF (0-5); Urine pH 7.5 (5.0-9.0)
[2025-01-23 16:20] LABS: Chloride 106 mmol/L (98-107); Sodium 139 mmol/L (136-145)
[2025-01-23 16:21] LABS: Anion Gap 5 (5-15); Calcium 9.3 mg/dL (8.7-10.4); Carbon Dioxide 28 mmol/L (20-31)
[2025-01-23 16:26] LABS: BUN/Creatinine Ratio 13.2 (10.0-20.0); Blood Urea Nitrogen 12 mg/dL (9-23)
[2025-01-23 16:33] LABS: Glucose 219 mg/dL (74-106); Potassium 3.3 mmol/L (3.5-5.1)
--- NOTE | 2025-01-23 18:11 | DVHSR ---
APPROVED REPORT EXAM: Two-dimensional and M-mode echocardiogram with Doppler, color Doppler and Bubble Study. Blood Pressure: 135/65 mmHg INDICATION Syncope RISK FACTORS Height: 5'6, Weight: 138 DIMENSIONS LVDd3.6 (3.8-5.7cm)LA (2D)3.7 (1.9-4.0cm)Aortic Root2.9 (2.0-3.7cm) LVDs2.0 (2.5-4.0cm)LA (MM) (1.9-4.0cm)Aortic Cusp Exc1.3 (1.5-2.0cm) EF (%) 60.0 (55-70%)Rt. Atrium4.2 (1.9-4.0cm)Asc. Aorta cm IVSd1.0 (0.7-1.1cm)RV (D)3.8 (1.8-2.4cm) PWd1.2 (0.7-1.1cm) Mitral Valve MitralMitral Stenosis E wave0.98m/sMV Mean GR.3mmHg A wave1.40m/sMV Peak GR.70mmHg E/A ratio0.72D MVAcm2 DECEL [id number] 1/2 Timems Aortic Valve Aortic ValveAortic Stenosis V10.99m/Abraham Mean GR.6mmHg V21.62m/Abraham Peak GR.10mmHg LVOT Diameter2.0 (1.8-2.4cm)Doppler AVA1.92cm2 Pulmonic Valve V21.00m/s Tricuspid Valve TR Velocity2.57m/s [id number] Conclusion lvef 55% borderline lvh momderate MAC, mild mitral stenossi left atrium enlarged
[2025-01-23] MEDS: MAGNESIUM OXIDE 400 MG TAB PO ONE (19:13)
[2025-01-23] MEDS: cefTRIAXone 1GM/50ML D5W 50 ML IV ONE (19:13)
--- NOTE | 2025-01-23 20:30 | ECG ---
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
[2025-01-23] MEDS: LOSARTAN POTASSIUM 50 MG TAB PO ONE (21:41)
[2025-01-23] MEDS: hydroCHLOROthiazide 25 MG TAB PO ONE (21:41)
[2025-01-24 01:00] VITALS: BP 141/60; PULSE 73; RESP 15; TEMP 97.7; O2SAT 95
[2025-01-24 05:00] VITALS: BP 154/67; PULSE 76; RESP 15; TEMP 76; O2SAT 96
[2025-01-24 08:03] LABS: Anion Gap 9 (5-15); Calcium 9.7 mg/dL (8.7-10.4); Carbon Dioxide 26 mmol/L (20-31); Chloride 105 mmol/L (98-107); Sodium 140 mmol/L (136-145)
[2025-01-24 08:09] LABS: BUN/Creatinine Ratio 15.4 (10.0-20.0); Blood Urea Nitrogen 12 mg/dL (9-23)
[2025-01-24 08:10] LABS: Magnesium 1.9 mg/dL (1.6-2.6)
[2025-01-24 08:16] LABS: Glucose 145 mg/dL (74-106); Potassium 3.5 mmol/L (3.5-5.1)
[2025-01-24 08:35] VITALS: BP 129/77; PULSE 66; RESP 16; TEMP 97.7; O2SAT 99
[2025-01-24] MEDS: cefTRIAXone 1GM/50ML D5W 50 ML IV SCH (09:58)
[2025-01-24] MEDS: MAGNESIUM OXIDE 400 MG TAB PO SCH (09:59)
[2025-01-24] MEDS: hydroCHLOROthiazide 25 MG TAB PO SCH (10:00)
[2025-01-24] MEDS: LOSARTAN POTASSIUM 50 MG TAB PO SCH (10:01)
[2025-01-24] MEDS: POTASSIUM CHL 20 Meq TABLET PO ONE (11:45)
[2025-01-24] MEDS ORDERED: CEPH250C PO (11:53)
[2025-01-24] MEDS ORDERED: ERGO1CAP23 PO (11:53)
[2025-01-24] MEDS ORDERED: POTA-215 PO (11:53)
--- NOTE | 2025-01-24 11:56 | DVHDS2 ---
Discharge Summary Date of Admission January 22, 2025 at 21:11 Date of Discharge: January 24, 2025 Admitting Diagnosis Mechanical Fall Labs/Diagnostic Data: Laboratory Results Test 01/24/25 11:20 01/24/25 06:15 01/23/25 14:50 01/23/25 07:11 POC Glucose 230 mg/dl (70-106) Sodium Level 140 mmol/L (136-145) Potassium Level 3.5 mmol/L (3.5-5.1) Chloride Level 105 mmol/L (98-107) Carbon Dioxide Level 26 mmol/L (20-31) Anion Gap 9 (5-15) Blood Urea Nitrogen 12 mg/dL (9-23) Creatinine 0.78 mg/dL (0.550-1.02) Glomerular Filtration Rate Calc 78 mL/min (>90) BUN/Creatinine Ratio 15.4 (10.0-20.0) Serum Glucose 145 mg/dL (74-106) Calcium Level 9.7 mg/dL (8.7-10.4) Magnesium Level 1.9 mg/dL (1.6-2.6) Urine Color Yellow (Yellow) Urine Clarity Clear (Clear) Urine pH 7.5 (5.0-9.0) Urine Specific [place] 1.015 (1.001-1.035) Urine Protein Negative (Negative) Urine Ketones Trace (Negative) Urine Blood Negative /uL (Negative) Urine Nitrite Negative (Negative) Urine Bilirubin Negative (Negative) Urine Urobilinogen Normal mg/dL (Negative) Urine Leukocyte Esterase 2+ /uL (Negative) Urine RBC 5 /hpf (0 - 4) Urine Microscopic WBC 13 /HPF (0-5) Urine Squamous Epithelial Cells Few /hpf (<5) Urine Bacteria Few /hpf (None Seen) Urine Glucose Trace mg/dL (Normal) White Blood Count 8.8 10^3/uL (4.4-10.8) Red Blood Count 4.59 10^6/uL (4.0-5.20) Hemoglobin 13.9 g/dL (12.2-16.2) Hematocrit 40.8 % (36.0-46.0) Mean Corpuscular Volume 89.0 fL (80.0-100.0) Mean Corpuscular Hemoglobin 30.3 pg (28.0-32.0) Mean Corpuscular Hemoglobin Concent 34.1 g/dL (32.0-36.0) Red Cell Distribution Width 18.9 % (11.8-14.3) Platelet Count 210 10^3/uL (140-450) Mean Platelet Volume 8.9 fL (6.9-10.8) Neutrophils (%) (Auto) 85.1 % (37.0-80.0) Lymphocytes (%) (Auto) 8.4 % (10.0-50.0) Monocytes (%) (Auto) 6.0 % (0.0-12.0) Eosinophils (%) (Auto) 0.1 % (0.0-7.0) Basophils (%) (Auto) 0.4 % (0.0-2.0) Neutrophils # (Auto) 7.5 10 ^3/uL (1.6-8.6) Lymphocytes # (Auto) 0.7 10 ^3/uL (0.4-5.4) Monocytes # (Auto) 0.5 10 ^3/uL (0-1.3) Eosinophils # (Auto) 0 10 ^3/uL (0-0.8) Basophils # (Auto) 0 10 ^3/uL (0-0.2) Nucleated Red Blood Cells 0.1 % Hemoglobin A1c 8.1 % A1C (<5.7) Total Bilirubin 0.6 mg/dL (0.2-1.0) Aspartate Amino Transferase (AST) 16 U/L (13-40) Alanine Aminotransferase (ALT) 13 U/L (7-40) Alkaline Phosphatase 96 U/L (46-116) Total Protein 6.1 g/dL (5.7-8.2) Albumin 4.1 g/dL (3.2-4.8) Test 01/22/25 22:41 01/22/25 17:42 Ammonia 19 umol/L (11-32) Troponin I High Sensitivity 5 ng/L (</=34) Lactic Acid Level 1.2 mmol/L (0.4-2.0) Creatine Kinase 52 U/L (34-145) B-Type Natriuretic Peptide 159.13 pg/mL (0-100) Vitamin B12 Level 733 pg/mL (211-911) Vitamin D 25-Hydroxy 15.1 ng/mL (30.0-100) Folic Acid 19.21 ng/mL (>5.38) Thyroid Stimulating Hormone (TSH) 1.71 uIU/mL (0.55-4.78) Other Laboratory Tests 01/24/25 06:15 01/23/25 07:11 Brief Hx & Hospital Course: Patient is a 79 year-old F who presented to the hospital after having a mechanical fall with left eye bruise. Patient has hypokalemia likely due to HCTZ use. Patient also has a UTI, will discharge with Keflex for UTI, Potassium, and Vitamin D. HOLD ASA for 2 weeks. Will need to see PCP in 2 weeks. Condition at Discharge: Stable Final Diagnosis/Problems List Mechanical Fall UTI Hypokalemia DM2 A1c 8.1 Discharge Disposition: Home Discharge Instruct/Medications Diet: Regular Activity: Light activity Follow Up/Referral: PCP in 2 weeks Medications: See [facility] Discharge Statement: "Patient was advised to return to the ER or call 911 if any headaches, dizziness, shortness of breath, chest pain, abdominal pain, bleeding, fevers, or worsening of medical condition. Patient was counseled about treatment plan, medications, possible side effects, patientverbalized understanding. All questions were answered to the best of my ability. This discharge took greater then 30 minutes in planning, reviewing documentation, counseling the patient, and discussing with other team members." ASSESSMENT ASSESSMENT Assessment Date of Service: January 24, 2025 Billing Provider: DENISE STUART MD Common Visit Codes: [id number] DISCH DAY >30min DENISE STUART MD January 24, 2025 11:56
[2025-01-24 12:37] VITALS: BP 163/75; PULSE 64; RESP 16; TEMP 97.3; O2SAT 98
[2025-01-24 17:00] VITALS: BP 134/82; PULSE 70; RESP 16; TEMP 98.2; O2SAT 96
[2025-01-24 17:08] VITALS: BP 129/77
== END 2025-01-24 17:49 | disposition home health service (06) | DRG 89 ==
LOC: OVERFLOW 16:54 → ER 16:54 → OVERFLOW 21:11 → TELE-EAST 22:46 → EAST 01-23 20:24 → TELE-EAST 01-23 22:02 → EAST 01-23 23:43
PROVIDERS: ADMIT Internal Medicine; ATTEND Internal Medicine
DX: S06.0X0A Concussion without loss of consciousness, initial encounter (principal); I50.32 Chronic diastolic (congestive) heart failure; N39.0 Urinary tract infection, site not specified; E87.6 Hypokalemia; E11.9 Type 2 diabetes mellitus without complications; E55.9 Vitamin D deficiency, unspecified; I11.0 Hypertensive heart disease with heart failure; X58.XXXA Exposure to other specified factors, initial encounter; S05.12XA Contusion of eyeball and orbital tissues, left eye, initial encounter; T50.2X5A Adverse effect of carbonic-anhydrase inhibitors, benzothiadiazides and other diuretics, initial encounter; R29.6 Repeated falls; E78.5 Hyperlipidemia, unspecified; M81.0 Age-related osteoporosis without current pathological fracture; F41.9 Anxiety disorder, unspecified; Z91.81 History of falling; Z79.899 Other long term (current) drug therapy; Z79.84 Long term (current) use of oral hypoglycemic drugs; Y93.89 Activity, other specified; Y92.89 Other specified places as the place of occurrence of the external cause; Y99.8 Other external cause status
CPT/HCPCS: 36415; 70450; 71045; 72125; 73590; 80048; 80053; 81001; 82140; 82306; 82550; 82607; 82746; 82962; 83036; 83605; 83735; 83880; 84443; 84484; 85025; 93005; 93306; 93886; 97110; 97116; 97163; 97530; G0378; J1815